=== PATIENT | male | born 1965 | race Caucasian/White ===

== ENCOUNTER 2025-04-07 13:59 | Emergency (ER) | payer OTHER, SELFPAY ==
[2025-04-07 14:01] VITALS: BP 120/87
[2025-04-07 15:21] VITALS: BP 132/87
--- NOTE | 2025-04-07 15:21 | EDRN ---
Pt has an episode of chest tightness 6/10 w/ upper back discomfort for 8-10 seconds 2 days ago. No symptoms since. Pt states int gurgling in his chest since.
[2025-04-07 15:23] VITALS: BMI 35.4
[2025-04-07 15:27] VITALS: BMI 34.5
--- NOTE | 2025-04-07 15:29 | EDRN ---
Dr. Villasenor in room w/pt.
[2025-04-07 15:49] LABS: Hematocrit 44.4 % (39.0-52.0); Hemoglobin 15.6 g/dL (13.0-18.0); Mean Corp Hgb Conc. 35.1 g/dL (33.0-37.0); Mean Corpuscular Volume 85.2 fL (80.0-94.0); Platelet Count 256 10^3/uL (130-400); Red Cell Dist. Width 13.2 % (11.5-14.5)
[2025-04-07 15:59] LABS: Blood Urea Nitrogen 20 mg/dl (9-20); Calcium 9.3 mg/dl (8.4-10.2); Carbon Dioxide 24 mmol/L (22-30); Chloride 106 mmol/L (98-107); Estimated Creatinine Clearance 119 ml/min; Glucose 97 mg/dl (70-99); Potassium 4.7 mmol/L (3.5-5.1); Sodium 137 mmol/L (135-145); eGFR > 60.00
[2025-04-07 16:15] LABS: Troponin I < 0.012 ng/ml
--- NOTE | 2025-04-07 16:23 | ED.GENMED ---
History of Present Illness
General
Chief Complaint: Cardiac Symptoms
Time Seen by Provider: 04/07/25 14:58
History of Present Illness
History of Present Illness:
Patient is a 59-year-old man presenting to the emergency department chest pain. He states a few days ago he was talking on the phone when he developed sharp pain for 10 to 15 seconds. No diaphoresis nausea vomiting. No shortness of breath. No
traumatic events. He does state that he is under a lot of stress. He has had history of anxiety related chest pain before. He denies any cardiac problem. No nausea or vomiting. At this time patient has no complaints. He was brought in today at
the request of family as he was told in the past never to ignore his chest pain.
Phy Exam
Physical Exam
Physical Exam:
GENERAL: in no acute distress
HEENT: normocephalic, extraocular movements intact, moist oral mucosa
NECK: normal inspection
RESPIRATORY: no respiratory distress, clear to auscultation bilaterally
CARDIOVASCULAR: regular rate and rhythm
ABDOMEN/: soft, non-distended, non-tender to palpation, no rebound or guarding
EXTREMITIES: non-tender, no edema/swelling
NEUROLOGIC: awake and alert, moves all extremities
SKIN: warm
Course
Orders/Labs/Results
Orders:
Orders
04/07/25 14:04
Electrocardiogram (*1) Urgent
Reason for Study: Chest Pain
EKG- Treatment ONCE
04/07/25 14:59
CR Chest - 2 Views Urgent
Comment:
Reason For Exam: chest pain
04/07/25 15:35
Basic Metabolic Panel Urgent
Complete Blood Count/No Diff Urgent
Magnesium Urgent
Comment: ADD ON
TSH Reflex To Free T4 Urgent
Comment: ADD ON
Troponin I Urgent
Abnormal Lab Results
04/07/25
15:35
WBC 11.9 H 10^3/uL
(4.8-10.8)
04/07/25 15:35
04/07/25 15:35
Vital Signs
Initial and Last Documented VS:
Initial Vital Signs
Temp Pulse Resp BP Pulse Ox
98.2 F 102 22 120/87 98
04/07/25 14:01 04/07/25 14:01 04/07/25 14:01 04/07/25 14:01 04/07/25 14:01
Last Documented Vital Signs
Temp Pulse Resp BP Pulse Ox
98.2 F 96 21 132/87 97
04/07/25 14:01 04/07/25 15:21 04/07/25 15:21 04/07/25 15:21 04/07/25 16:23
MDM/Problems Addressed
Differential Diagnosis Includes:
Patient is a 59-year-old man presenting to the emergency department chest pain a few days ago that lasted for 8 to 7 seconds and has not recurred. He was under a lot of stress. Vitals unremarkable. Exam is otherwise reassuring. Differential
considered atypical ACS versus stress versus metabolic derangements or costochondritis. Blood work reassuring. Chest x-ray per my interpretation with no obvious abnormality. Will discharge patient at this time. I did advise patient that he would
benefit from outpatient cardiology evaluation like a stress test as he has never been evaluated before.
*Pulse Oximetry
SaO2: 97
Oxygen Mode of Delivery: Room air
Patient hypoxic: no
*Critical Care Note
Total Time (30-74mins, 75-104mins- exclusive of procedures): Not Applicable
ED Attending Note
-
Portions of this chart may have been created with voice recognition software.� Occasional wrong word or��sound alike� substitutions may have occurred due to the inherent limitations of voice recognition software.
Discharge Plan
Departure
Patient Disposition: Home (Routine Discharge)
Date of Disposition: 04/07/25
Time of Disposition: 16:45
Patient with high blood pressure during this ER visit?: No
Discharge Problem:
Chest pain
Instructions: Chest Pain (DC)
Prescriptions:
No Action
methylprednisolone [Medrol (Randall)] 4 mg tablets,dose pack
See Rx Instructions .ROUTE .COMPLEX Qty: 21 0RF
Rx Instructions:
orally per package directions
Referrals:
Abhijeet Allen MD [Active, Cardiology]
Tank Villar DO [Family Provider, Family Practice]
Activity Restrictions/Additional Instructions:
You were evaluated in the Emergency Department today for chest pain. Your evaluation has shown no signs of medical conditions requiring emergent intervention at this time, however we recommend that you follow up with your primary care physician or
your fueler as soon as possible for further testing as an outpatient.
Please schedule an appointment for follow up with a fueler as soon as possible.
Return to the Emergency Department if you experience worsening or uncontrolled chest pain, shortness of breath, light headedness, feeling faint, nausea, vomiting, or any other concerning symptoms.
Thank you for choosing us for your care.
Interventions
Interventions:
*Risk Screen - Suicide Last Done: 04/07/25 15:25
*General Assessment Last Done: 04/07/25 15:24
*Neglect/Abuse Screening Last Done: 04/07/25 15:25
*ED COVID-19 Vaccine History Last Done: 04/07/25 15:24
*ED Influenza Vaccine History Last Done: 04/07/25 15:24
[facility] Risk Assessment Tool Last Done: 04/07/25 15:24
Discharge Date and Time
Print Language: [id number]
[2025-04-07 17:05] LABS: Magnesium 2.3 mg/dl (1.6-2.3)
[2025-04-07 17:10] VITALS: BP 116/87
== END 2025-04-07 17:18 | disposition home or self-care (01) ==
LOC: EMR 13:59
PROVIDERS: EMERGENCY PHYSICIAN Student in an Organized Health Care Education/Training Program; FAMILY PHYSICIAN Family Medicine
DX: R07.9 Chest pain, unspecified (principal)
CPT/HCPCS: 99284; 71046; 80048; 83735; 84443; 84484; 85027; 93005